=== PATIENT | female | born 2000 | race Two or more races ===

== ENCOUNTER 2022-05-03 17:28 | Emergency (ER) | payer MEDICAID, OTHER ==
[~2022-05-03] VITALS: Ht 149.9 cm; Wt 73.8 kg
[2022-05-03 18:21] VITALS: BP 130/87
[2022-05-03 19:05] LABS: Urine Bacteria FEW /hpf (None Seen); Urine Blood Negative /uL (Negative); Urine Mucus FEW (None Seen); Urine Specific Gravity 1.035 (1.001-1.035); Urine WBC 32 /hpf (0 - 5)
[2022-05-03 19:06] LABS: Basophils # (auto) 0.1 10 ^3/uL (0-0.2); Basophils % (auto) 0.3 % (0.0-2.0); Eosinophils # (auto) 0 10 ^3/uL (0-0.8); Eosinophils % (auto) 0.1 % (0.0-7.0); Hematocrit 39.1 % (36.0-46.0); Lymphocytes # (auto) 2.3 10 ^3/uL (0.4-5.4); Lymphocytes % (auto) 15.7 % (10.0-50.0); Mean Corpuscular Hemoglobin 28.8 pg (28.0-32.0); Mean Corpuscular Hgb Conc. 33.2 g/dL (32.0-36.0); Mean Corpuscular Volume 86.8 fL (80.0-100.0); Monocytes # (auto) 0.7 10 ^3/uL (0-1.3); Neutrophils # (auto) 11.6 10 ^3/uL (1.6-8.6); Neutrophils % (auto) 78.9 % (37.0-80.0); Nucleated Red Blood Cells % 0.1 %; Red Cell Distribution Width 13.4 % (11.8-14.3); White Blood Cell 14.7 10^3/uL (4.4-10.8)
[2022-05-03 19:16] LABS: Albumin 4.4 g/dL (3.4-5.0); Potassium 3.6 mmol/L (3.5-5.1)
[2022-05-03 19:21] LABS: Alcohol, Urine < 3.0 mg/dL (0-10); Amphetamine Screen, Urine NEGATIVE (NEGATIVE); Barbiturate Scree,Urine NEGATIVE (NEGATIVE); Benzodiazephine Screen, Urine NEGATIVE (NEGATIVE); Cannabinoid Screen, Urine POSITIVE (NEGATIVE); Cocaine Screen, Urine NEGATIVE (NEGATIVE); Phencyclidine Screen, Urine NEGATIVE (NEGATIVE)
[2022-05-03 19:27] LABS: BUN/Creatinine Ratio 13.6; Bilirubin, Total 0.6 mg/dL (0.2-1.0); Total Protein 8.6 g/dL (6.4-8.2)
[2022-05-03 19:28] LABS: Opiate Scree,Urine NEGATIVE (NEGATIVE)
== END 2022-05-03 21:03 | disposition left against medical advice (07) ==
LOC: ER 17:28
DX: R10.13 Epigastric pain (principal); Z53.21 Procedure and treatment not carried out due to patient leaving prior to being seen by health care provider
CPT/HCPCS: 36415; 80053; 80307; 81001; 81025; 83605; 83690; 85025

== ENCOUNTER 2023-11-26 15:56 | Inpatient (IN) | payer MEDICAID ==
[~2023-11-26] VITALS: Ht 152.4 cm; Wt 72.0 kg
[2023-11-26 16:36] LABS: Basophils # (auto) 0 10 ^3/uL (0-0.2); Basophils % (auto) 0.4 % (0.0-2.0); Eosinophils # (auto) 0 10 ^3/uL (0-0.8); Eosinophils % (auto) 0.1 % (0.0-7.0); Hematocrit 36.1 % (36.0-46.0); Hemoglobin 12.2 g/dL (12.2-16.2); Lymphocytes # (auto) 1.7 10 ^3/uL (0.4-5.4); Lymphocytes % (auto) 16.7 % (10.0-50.0); Mean Corpuscular Hemoglobin 30.3 pg (28.0-32.0); Mean Corpuscular Hgb Conc. 33.7 g/dL (32.0-36.0); Mean Corpuscular Volume 89.9 fL (80.0-100.0); Monocytes # (auto) 0.5 10 ^3/uL (0-1.3); Monocytes % (auto) 5.3 % (0.0-12.0); Neutrophils # (auto) 7.8 10 ^3/uL (1.6-8.6); Neutrophils % (auto) 77.5 % (37.0-80.0); Platelet Count (auto) 204 10^3/uL (140-450); Red Blood Cells 4.02 10^6/uL (4.0-5.20); Red Cell Distribution Width 12.8 % (11.8-14.3); White Blood Cell 10.1 10^3/uL (4.4-10.8)
[2023-11-26 16:58] LABS: Urine Bacteria None Seen /hpf (None Seen)
[2023-11-26 17:05] LABS: Alanine Aminotransferase 10 U/L (7-40); Albumin 4.4 g/dL (3.2-4.8); Alkaline Phosphatase 68 U/L (46-116); Anion Gap 10 (5-15); Aspartate Aminotransferase 13 U/L (13-40); BUN/Creatinine Ratio 8.9 (10.0-20.0); Blood Urea Nitrogen 8 mg/dL (9-23); Calcium 9.2 mg/dL (8.7-10.4); Carbon Dioxide 22 mmol/L (20-30); Chloride 105 mmol/L (98-107); Glucose 161 mg/dL (74-106); Lipase 32 U/L (12-53); Potassium 3.1 mmol/L (3.5-5.1); Sodium 137 mmol/L (136-145)
[2023-11-26 17:06] LABS: Bilirubin, Total 0.7 mg/dL (0.2-1.0); Total Protein 7.1 g/dL (5.7-8.2)
[2023-11-26 17:08] LABS: Urine Blood Negative /uL (Negative); Urine Clarity Turbid (Clear); Urine Color Light-Yellow (Yellow); Urine Mucus FEW (None Seen); Urine Protein, UAD TRACE (Negative); Urine Urobilinogen Normal (Negative); Urine WBC 10 /hpf (0 - 5)
[2023-11-26] MEDS: ONDANSETRON HCL 4 MG/2 ML VIAL IV ONE (18:37)
[2023-11-26 18:38] VITALS: PULSE 59; RESP 16; O2SAT 99
[2023-11-26] MEDS: CIPROFLOXACIN 400MG/200ML 200 ML IV ONE (18:43)
[2023-11-26] MEDS ORDERED: levoFLOXacin 500MG 100 ML IV ONE (19:30)
[2023-11-26] MEDS: POTASSIUM EFFERVESENT TAB 25 MEQ PO ONE (19:30)
[2023-11-26] MEDS ORDERED: NITROGLYCERIN 0.4 MG SL TAB SL PRN (19:30)
[2023-11-26] MEDS: SODIUM CHLORIDE 0.9% 1,000 ML IV SCH (19:30)
[2023-11-26 20:20] LABS: Magnesium 1.9 mg/dL (1.6-2.6)
[2023-11-26 20:21] LABS: Phosphorus 1.4 mg/dL (2.4-5.1)
[2023-11-26 20:51] LABS: Amphetamine Screen, Urine Neg (NEGATIVE); Benzodiazephine Screen, Urine Neg (NEGATIVE)
[2023-11-26 20:52] LABS: Barbiturate Scree,Urine Neg (NEGATIVE); Cannabinoid Screen, Urine Pos (NEGATIVE); Cocaine Screen, Urine Neg (NEGATIVE); Opiate Scree,Urine Neg (NEGATIVE); Phencyclidine Screen, Urine Neg (NEGATIVE)
[2023-11-26 22:58] VITALS: BP 122/66; PULSE 65; RESP 18; TEMP 98.7; O2SAT 98
[2023-11-27] VITALS (7 sets, daily range): BP systolic 107–132; BP diastolic 59–92; PULSE 60–90; RESP 14–20; TEMP 97.9–100.1; O2SAT 97–100
[2023-11-27] MEDS: HYDROcodone-ACET 5/325MG TAB PO ONE (05:35)
[2023-11-27 07:41] LABS: Basophils # (auto) 0 10 ^3/uL (0-0.2); Basophils % (auto) 0.4 % (0.0-2.0); Eosinophils # (auto) 0.1 10 ^3/uL (0-0.8); Eosinophils % (auto) 0.6 % (0.0-7.0); Hematocrit 32.3 % (36.0-46.0); Hemoglobin 11.3 g/dL (12.2-16.2); Lymphocytes # (auto) 1.5 10 ^3/uL (0.4-5.4); Mean Corpuscular Hemoglobin 31.2 pg (28.0-32.0); Mean Corpuscular Hgb Conc. 34.9 g/dL (32.0-36.0); Mean Corpuscular Volume 89.5 fL (80.0-100.0); Monocytes # (auto) 0.8 10 ^3/uL (0-1.3); Monocytes % (auto) 8.5 % (0.0-12.0); Neutrophils # (auto) 6.6 10 ^3/uL (1.6-8.6); Neutrophils % (auto) 73.5 % (37.0-80.0); Platelet Count (auto) 164 10^3/uL (140-450); Red Blood Cells 3.61 10^6/uL (4.0-5.20); Red Cell Distribution Width 12.8 % (11.8-14.3)
[2023-11-27 07:53] LABS: Alanine Aminotransferase 15 U/L (7-40); Albumin 3.5 g/dL (3.2-4.8); Alkaline Phosphatase 58 U/L (46-116); Anion Gap 4 (5-15); Aspartate Aminotransferase 9 U/L (13-40); Bilirubin, Total 0.7 mg/dL (0.2-1.0); Calcium 8.5 mg/dL (8.7-10.4); Carbon Dioxide 28 mmol/L (20-30); Chloride 108 mmol/L (98-107); Glucose 89 mg/dL (74-106); Sodium 140 mmol/L (136-145); Total Protein 5.9 g/dL (5.7-8.2)
[2023-11-27 07:54] LABS: BUN/Creatinine Ratio 6.7 (10.0-20.0); Blood Urea Nitrogen < 5 mg/dL (9-23)
[2023-11-27] MEDS: levoFLOXacin 500MG 100 ML IV SCH (09:35)
[2023-11-27] MEDS: ERGOCALCIFEROL 50,000 UNIT(1.25MG) CAP PO SCH (11:45)
[2023-11-27 13:24] LABS: COVID19 ANTIGEN SOFIA FIA POSITIVE (NEGATIVE)
[2023-11-27] MEDS: MORPHINE SULFATE INJ 2 MG/ml SYRG IV PRN (14:03)
[2023-11-27] MEDS: CYANOCOBALAMIN (B-12) 1000 MCG/1 ML VIAL IM ONE (14:04)
[2023-11-27] MEDS: POTASSIUM CHL 20MEQ/100ML 100 ML IV ONE (14:27)
[2023-11-27 16:10] LABS: Uric Acid 4.8 mg/dL (3.1-7.8)
[2023-11-27 16:13] LABS: Phosphorus 2.2 mg/dL (2.4-5.1)
[2023-11-27] MEDS: ONDANSETRON HCL 4 MG/2 ML VIAL IV PRN (22:07)
[2023-11-28] VITALS: BP 123/77; PULSE 93; RESP 17; TEMP 99.4; O2SAT 98
[2023-11-28 05:00] VITALS: BP 111/57; PULSE 80; RESP 20; TEMP 100.4; O2SAT 98
[2023-11-28] MEDS: ACETAMINOPHEN 500 MG TAB PO PRN (05:58)
[2023-11-28 07:29] LABS: Hemoglobin 11.9 g/dL (12.2-16.2); Mean Corpuscular Hemoglobin 30.6 pg (28.0-32.0); Platelet Count (auto) 153 10^3/uL (140-450); Red Blood Cells 3.89 10^6/uL (4.0-5.20); Red Cell Distribution Width 12.8 % (11.8-14.3); White Blood Cell 7.4 10^3/uL (4.4-10.8)
[2023-11-28 07:33] LABS: Anion Gap 7 (5-15); Carbon Dioxide 22 mmol/L (20-30); Chloride 109 mmol/L (98-107); Potassium 3.3 mmol/L (3.5-5.1); Sodium 138 mmol/L (136-145)
[2023-11-28 07:34] LABS: Calcium 8.6 mg/dL (8.7-10.4)
[2023-11-28 07:39] LABS: BUN/Creatinine Ratio 6.1 (10.0-20.0); Blood Urea Nitrogen 5 mg/dL (9-23); Glucose 127 mg/dL (74-106)
[2023-11-28 07:40] LABS: Band Neutrophils % (manual) 0; Basophils % (manual) 0 (0.0-2.0); Blast Cells 0; Eosinophils % (manual) 0 (0-7); Metamyelocytes % 0; Myelocytes % 0; Promyelocytes % 0; Reactive Lymphocytes 0
[2023-11-28 08:30] VITALS: BP 113/65; PULSE 64; RESP 16; TEMP 99.1; O2SAT 98
[2023-11-28 08:45] LABS: Lymphocytes % (manual) 12 (10.0-50.0); Monocytes % (manual) 7 (0-12); Platelet Estimate Adequate
[2023-11-28] MEDS: ZINC SULFATE 220mg CAP or TAB PO SCH (11:48)
[2023-11-28 12:23] VITALS: BP 110/69; PULSE 56; RESP 17; TEMP 97.8; O2SAT 99
[2023-11-28] MEDS: POTASSIUM PHOSPHATE 22 MEQ in SODIUM CHL 0.9% 100 ML IV ONE (14:20)
[2023-11-28 16:00] VITALS: BP 116/77; PULSE 72; RESP 16; TEMP 98.5; O2SAT 98
[2023-11-28 22:03] VITALS: BP 112/70; PULSE 70; RESP 20; TEMP 98.8; O2SAT 99
[2023-11-29] VITALS: BP_SYST 108; BP_DIAS 49; BP_DIAS 65; PULSE 75; RESP 22; TEMP 99; O2SAT 99
[2023-11-29 05:00] VITALS: BP 167/77; PULSE 75; RESP 21; TEMP 98; O2SAT 95
[2023-11-29 08:00] VITALS: BP 121/79; PULSE 64; RESP 18; TEMP 98.1; O2SAT 98
[2023-11-29 08:07] LABS: Basophils # (auto) 0 10 ^3/uL (0-0.2); Basophils % (auto) 0.9 % (0.0-2.0); Eosinophils # (auto) 0.1 10 ^3/uL (0-0.8); Eosinophils % (auto) 2.7 % (0.0-7.0); Hematocrit 36.8 % (36.0-46.0); Hemoglobin 12.4 g/dL (12.2-16.2); Lymphocytes # (auto) 1.6 10 ^3/uL (0.4-5.4); Lymphocytes % (auto) 29.6 % (10.0-50.0); Mean Corpuscular Hemoglobin 30.2 pg (28.0-32.0); Mean Corpuscular Hgb Conc. 33.7 g/dL (32.0-36.0); Mean Corpuscular Volume 89.4 fL (80.0-100.0); Monocytes # (auto) 0.9 10 ^3/uL (0-1.3); Monocytes % (auto) 16.9 % (0.0-12.0); Neutrophils # (auto) 2.7 10 ^3/uL (1.6-8.6); Neutrophils % (auto) 49.9 % (37.0-80.0); Platelet Count (auto) 156 10^3/uL (140-450); Red Blood Cells 4.12 10^6/uL (4.0-5.20); Red Cell Distribution Width 12.9 % (11.8-14.3); White Blood Cell 5.4 10^3/uL (4.4-10.8)
[2023-11-29 08:16] LABS: Chloride 107 mmol/L (98-107); Potassium 3.8 mmol/L (3.5-5.1); Sodium 138 mmol/L (136-145)
[2023-11-29 08:17] LABS: Anion Gap 5 (5-15); Calcium 8.9 mg/dL (8.7-10.4); Carbon Dioxide 26 mmol/L (20-30)
[2023-11-29 08:22] LABS: Glucose 94 mg/dL (74-106)
[2023-11-29 08:23] LABS: Blood Urea Nitrogen < 5 mg/dL (9-23)
[2023-11-29] MEDS: DOCUSATE SOD 100 MG CAP PO PRN (11:45)
[2023-11-29 12:34] VITALS: BP 107/78; PULSE 60; RESP 16; TEMP 98.2; O2SAT 98
[2023-11-29] MEDS ORDERED: LEVO500T91 PO (13:50)
[2023-11-29 15:43] VITALS: BP 107/78; PULSE 60; RESP 16; TEMP 98.2; O2SAT 98
[2023-11-29 16:00] VITALS: BP 118/87; PULSE 70; RESP 20; TEMP 98.1; O2SAT 99
== END 2023-11-29 16:40 | disposition home or self-care (01) | DRG 463 ==
LOC: ER 15:56 → OVERFLOW 19:39 → CENTRAL 19:39 → WEST WING 22:40 → CENTRAL 11-29 02:10
PROVIDERS: ADMIT Internal Medicine; ATTEND Internal Medicine
DX: N13.6 Pyonephrosis (principal); U07.1 COVID-19; E86.0 Dehydration; E87.6 Hypokalemia; R73.9 Hyperglycemia, unspecified; E55.9 Vitamin D deficiency, unspecified; E53.8 Deficiency of other specified B group vitamins; Z88.0 Allergy status to penicillin; Z79.899 Other long term (current) drug therapy
CPT/HCPCS: 36415; 74176; 76775; 80048; 80053; 80307; 81001; 81025; 82306; 82607; 82728; 83036; 83690; 83735; 83970; 84100; 84443; 84550; 85007; 85025; 85027; 87086; 87426; G0378; J1956; J2405; J3480

== ENCOUNTER 2025-01-21 14:52 | Emergency (ER) | payer MEDICAID ==
[~2025-01-21] VITALS: Ht 154.9 cm; Wt 70.0 kg
[~2025-01-21 14:52] MED LIST: LEVO500T91 PO
[2025-01-21 16:00] LABS: Urine Protein, UAD 1+ (Negative)
[2025-01-21] MEDS ORDERED: ACET-1304 PO (16:24)
[2025-01-21] MEDS ORDERED: BACDST PO (16:24)
[2025-01-21] MEDS: ACETAMINOPHEN 325 MG TAB PO ONE (16:27)
[2025-01-21] MEDS: cefTRIAXone SOD 1,000 MG VL IM ONE (16:37)
[2025-01-21] MEDS: LIDOCAINE 1% HCL (LOCAL ANESTH.) INJ 20ML MDV ONE (16:37)
[2025-01-21 16:47] VITALS: BP 118/85; PULSE 88; RESP 20; TEMP 98.5; O2SAT 98
--- NOTE | 2025-01-22 11:18 | ED.PDOC ---
General HPI Comments A 25 YEAR OLD FEMALE PRESENTS TO THE ED WITH COMPLAINT OF UTI SYMPTOMS. PATIENT STATES SHE HAS BEEN EXPERIENCING UTI SYMPTOMS FOR THE PAST 2 WEEKS. PATIENT REPORTS SHE HAS BEEN EXPERIENCING A FEVER, CHILLS, BODY ACHES, URINARY URGENCY, SMALL URINE OUTPUT, AND DIFFICULTY URINATING OFF AND ON FOR THE PAST 2 WEEKS. PATIENT NOTES SHE WENT TO [facility] RECENTLY WHERE SHE WAS GIVEN IV ANTIBIOTIC TREATMENT AND PRESCRIBED KEFLEX, BUT NOTES THERE HAS BEEN NO IMPROVEMENT IN HIS SYMPTOMS. PATIENT DENIES DYSURIA, HEMATURIA, VAGINAL DISCHARGE, FLANK PAIN, SHORTNESS OF BREATH, CHEST PAIN, ABDOMINAL PAIN, NAUSEA, VOMITING, HEADACHE, OR OTHER COMPLAINTS. NO OTHER SYMPTOMS OR MODIFYING FACTORS AT THIS TIME. PATIENT IS ALERT, ORIENTED X 4, AND HAS STEADY GAIT. Chief Complaint: Urinary Time Seen by MD: 14:59 Primary Care Provider: SUNIL Duran notes: Nurses Notes, Medications, Allergies Allergies: Coded Allergies: Amoxicillin (Verified Allergy, Unknown, 05/03/22) Home Meds Active Scripts Sulfamethoxazole W/Trimethopri (Bactrim Ds Tablet) 1 Tab Tb, 1 TAB PO BID for 7 Days, #14 TAB Prov:INOCENCIO BOO 01/21/25 Acetaminophen (Tylenol Extra Strength Fo) 500 Mg Tab, 1000 MG PO BID, #30 TAB Prov:INOCENCIO BOO 25 Levofloxacin Hemihydrate (LEVOFLOXACIN) 500 Mg Tab, 1 TAB PO DAILY for 7 Days, #7 TAB Prov:GWENDOLYN GARCÍA DO 11/29/23 Information Source: Patient Mode of Arrival: Wheelchair Severity: Moderate Inability to void: None Timing: Weeks Duration: Since onset Prehospital treatment: None Onset: Spontaneous Symptoms: Frequency, Urgency, Other (FEVER, CHILLS, BODY ACHES) History of: UTI Location: Suprapubic Modifying factors: None associated signs and symptoms: Dysuria, Frequency, Urgency Past Medical History PAST MEDICAL HISTORY: UTI'S Surgical History: Denies all surgeries MIDD[employer]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 [employer]ISH TEACHER History Family History Family History: Reviewed,noncontributory to illness Social History Smoker: Non-Smoker Alcohol: Denies ETOH Use Drugs: Denies Drug Use Lives In: Home Constitutional: reports: chills, fever; denies: diaphoresis, fatigue, malaise, sweats, weakness, others EENTM: denies: blurred vision, double vision, ear bleeding, ear discharge, ear drainage, ear pain, ear ringing, eye pain, eye redness, hearing loss, mouth pain, mouth swelling, nasal discharge, nose bleeding, nose congestion, nose pain, photophobia, tearing, throat pain, throat swelling, voice changes, others Respiratory: denies: cough, hemoptysis, orthopnea, SOB at rest, shortness of b reath, SOB with excertion, stridor, wheezing, others Cardiovascular: denies: chest pain, dizzy spells, diaphoresis, Dyspnea on exertion, edema, irregular heart beat, left arm pain, lightheadedness, palpitations, PND, syncope, others Gastrointestinal: denies: abdomen distended, abdominal pain, blood streaked bowels, constipated, diarrhea, dysphagia, difficulty swallowing, hematemesis, melena, nausea, poor appetite, poor fluid intake, rectal bleeding, rectal pain, vomiting, others Genitourinary: reports: dysuria, frequency, urgency; denies: abnormal vagina bleeding, burning, dyspareunia, flank pain, hematuria, incontinence, pain, pre gnant, vagina discharge, others Neurological: denies: dizziness, fainting, headache, left sided numbness, left sided weakness, numbness, paresthesia, pre-existing deficit, right sided numbness, right sided weakness, seizure, speech problems, tingling, tremors, weakness, others Musculoskeletal: reports: muscle pain; denies: back pain, gout, joint pain, joint swelling, muscle stiffness, neck pain, others Integumetry: denies: bruises, change in color, change in hair/nails, dryness, laceration, lesions, lumps, rash, wounds, others Hematologic/Lymphatic: denies: anemia, blood clots, easy bleeding, easy bruising, swollen glands, others Endocrine: denies: excessive hunger, excessive sweating, excessive thirst, excessive urination, flushing, intolerance to cold, intolerance to heat, unexplained weight gain, unexplained weight loss, others Psychiatric: denies: anxiety, bipolar disorder, depression, hopeless, panic disorder, schizophrenia, sleepless, suicidal, others All Other Systems: Reviewed and Negative Physical Exam General Appearance: No Apparent Distress, Normal HEENT: Normal ENT Inspection, PERRL/EOMI, Pharynx Normal, TMs Normal Neck: Full Range of Motion, Non-Tender, Normal, Normal Inspection Respiratory: Chest Non-Tender, Lungs Clear, No Accessory Muscle Use, No Respiratory Distress, Normal Breath Sounds Cardiovascular: No Edema, No JVD, No Murmur, No Gallop, Normal Peripheral Pulses, Regular Rate/Rhythm Breast Exam: Deferred Gastrointestinal: No Organomegaly, No Pulsatile Mass, Normal Bowel Sounds, Soft, Suprapubic (PRESSURE ) Genitalia: Deferred Pelvic: Normal External Exam, Tender Uterus Rectal: Deferred Extremities: No calf tenderness, Normal capillary refill, Normal inspection, Normal range of motion, Non-tender, No pedal edema Musculoskeletal : Apperance: Normal Neurologic: Alert, automotive quality engineer II-XII nml as Tested, No Motor Deficits, Normal Affect, Normal Mood, No Sensory Deficits Cerebellar Function: Normal Reflexes: Normal Skin: Dry, Normal Color, Warm Peripheral Pulses: 2+ carotid (R), 2+ carotid (L) Lymphatic: No Adenopathy Was a procedure done? Was a procedure done?: No Differential Diagnosis Kidney stone (Female): N/A Kidney stone (Male): N/A Penile/Scrotal: N/A Urinary Problem (Male): N/A Urinary Problem (Female): Pyelonephritis, Urolithiasis, UTI, Vaginitis X-Ray, Labs, Meds, VS Vital Signs Date Time Temp Pulse Resp B/P (MAP) Pulse Ox O2 Delivery O2 Flow Rate FiO2 01/21/25 14:56 98.5 88 20 118/85 98 98.5 Lab Test 01/21/25 15:36 Range/Units Urine Color Yellow Yellow Urine Clarity Turbid H Clear Urine pH 6.0 5.0-9.0 Urine Specific [place] 1.035 1.001-1.035 Urine Protein 1+ H Negative Urine Ketones 2+ H Negative Urine Blood Negative Negative /uL Urine Nitrite Negative Negative Urine Bilirubin Negative Negative Urine Urobilinogen Normal Negative mg/dL Urine Leukocyte Esterase 2+ Negative /uL Urine RBC 4 0 - 4 /hpf Urine Microscopic WBC 16 H 0-5 /HPF Urine Squamous Epithelial Cells Mod <5 /hpf Urine Bacteria Few H None Seen /hpf Urine Mucus Few None Seen Urine Glucose Normal Normal mg/dL Urine Test Negative Negative Current Medications Medications (Trade) Dose Ordered Sig/Madi Route Start Time Stop Time Status Last Admin Ceftriaxone Sodium (Rocephin) 1,000 mg ONCE ONCE IM 01/21/25 16:15 01/21/25 16:16 DC 01/21/25 16:37 Acetaminophen (Tylenol Tablet) 1,000 mg ONCE ONCE PO 01/21/25 16:15 01/21/25 16:16 DC 01/21/25 16:27 X-Ray, Labs, Meds, VS Comment EXTERNAL MEDICAL RECORDS REVIEWED: [NONE] INDEPENDENT HISTORIANS: [NONE] SOCIAL DETERMINANTS OF HEALTH: [NONE] LABS ORDERED: UA, URINE REVIEWED AND INTERPRETED RESULTS: LEUKOCYTES 2+ IMAGING ORDERED: NONE TREATMENTS ORDERED: ROCEPHIN 1 G IM AND TYLENOL 1GM PO PROCEDURES PERFORMED: NONE CRITICAL CARE TIME: NONE I HAVE DISCUSSED THE PATIENT WITH THE ATTENDING PHYSICIAN DR. BROWNING AND HE AGREES WITH THE PATIENT'S PLAN OF CARE AND DISPOSITION. BASED ON HISTORY OF PRESENT ILLNESS, AND PHYSICAL EXAM, PATIENT WILL BE DISCHARGED HOME. DISCUSSED PLAN FOR DISCHARGE HOME WITH RX [SEPTRA DS AND TYLENOL 650MG ]. MEDICATION WARNINGS GIVEN. SHARED DECISION MAKING: DISCUSSED WITH PATIENT THAT THEIR WORKUP WAS NORMAL. PATIENT INSTRUCTED TO FOLLOW UP WITH PRIMARY CARE PROVIDER IN 1-2 DAYS FOR RE- EVALUATION OF SYMPTOMS. PATIENT VERBALIZES UNDERSTANDING TO RETURN TO ED FOR NEW OR WORSENING SYMPTOMS OR IF FOLLOW UP WITH PCP CANNOT BE OBTAINED. PATIENT FEELS COMFORTABLE GOING HOME AT THIS TIME. ALL QUESTIONS ADDRESSED AT TIME OF DISCHARGE. Time of 1ST Reevaluation: 17:00 Reevaluation 1ST: Improved Patient Education/Counseling: Diagnosis, Treatment, Need For Follow Up Family Education/Counseling: Diagnosis, Treatment, Need For Follow Up Medical Screening: No EMC Exist At This Time SEPSIS Sepsis Screen Date sepsis recognized/suspect: Jan 21, 2025 Time Sepsis recognized/suspect: 1458 Recent Procedure: No On Antibiotic Therapy: No Respiratory Rate >20: No Heart Rate >90: No Temp<36 C (96.8 F) or >38.3 C: No SBP <90 or MAP <65 mmHG: No New Acute Mental Status Change: No Is the patient on CPAP, BIPAP,: No Vital Signs Date Time Temp Pulse Resp B/P (MAP) Pulse Ox O2 Delivery O2 Flow Rate FiO2 01/21/25 14:56 98.5 88 20 118/85 98 98.5 Medications Medications Dose Ordered Sig/Madi Route Start Time Stop Time Status Last Admin Dose Admin Acetaminophen 1,000 mg ONCE ONCE PO 01/21/25 16:15 01/21/25 16:16 DC 01/21/25 16:27 Ceftriaxone Sodium 1,000 mg ONCE ONCE IM 01/21/25 16:15 01/21/25 16:16 DC 01/21/25 16:37 Lidocaine HCl 20 ml STK-MED ONCE .ROUTE 01/21/25 16:35 01/21/25 16:30 DC 01/21/25 16:37 Departure 1 Departure Time of Disposition: 17:00 Impression: Primary Impression: Acute UTI (urinary tract infection) Disposition: HOME / SELF CARE / HOMELESS Condition: Stable Additional Instructions: FOLLOW-UP WITH PCP IN 1 TO 2 DAYS. TAKE MEDICATIONS PRESCRIBED. RETURN TO ED FOR ANY NEW OR WORSENING SYMPTOMS. e-Prescriptions Sulfamethoxazole W/Trimethopri (Bactrim Ds Tablet) 1 Tab Tb 1 TAB PO BID for 7 Days, #14 TAB Prov: INOCENCIO BOO 01/21/25 Acetaminophen (Tylenol Extra Strength Fo) 500 Mg Tab 1000 MG PO BID, #30 TAB Prov: INOCENCIO BOO 01/21/25 Discharged With: Self, Relative (Mother) Critical Care Note Critical Care Time?: No Stability Stability form required: No I personally scribed for INOCENCIO BOO ([email or web address]) on 01/21/25 at 15:59. Electronically submitted by Lamin Avila ([email or web address]). I personally scribed for INOCENCIO BOO ([email or web address]) on 01/21/25 at 16:16. Electronically submitted by Lamin PATTON). INOCENCIO BOO Jan 21, 2025 15:59
== END 2025-01-21 16:50 | disposition home or self-care (01) ==
LOC: ER 14:52
DX: N39.0 Urinary tract infection, site not specified (principal); Z87.440 Personal history of urinary (tract) infections; Z88.0 Allergy status to penicillin; Z79.899 Other long term (current) drug therapy
CPT/HCPCS: 81001; 81025; 96372; 99283; J0696; J2003

== ENCOUNTER 2025-01-22 09:43 | Emergency (ER) | payer MEDICAID ==
[~2025-01-22] VITALS: Ht 152.4 cm; Wt 69.6 kg
[~2025-01-22 09:43] MED LIST changes: +ACET-1304 PO; +BACDST PO
[2025-01-22 09:45] VITALS: BP 131/54; PULSE 91; RESP 16; TEMP 100.2; O2SAT 97
[2025-01-22] MEDS ORDERED: methylPREDNISolone SOD SUCC 125 MG/2 ML VL IM ONE (10:45)
--- NOTE | 2025-01-22 11:44 | ED.PDOC ---
History of Present Illness HPI Comments 25 y/o F presents with relative for c/c of abdominal pain, nausea, vomiting, and throat swelling x4 days. Patient reports on returning to the ED after being last evaluated, yesterday, for continuing UTI, due to being unable to take her prescriptions she was prescribed. She comments on being unable to swallow medications and vomiting almost immediately. Denies any bloody or bilious vomitus, diarrhea, or further acute symptoms. Chief Complaint: Urinary Time Seen by MD: 10:20 Primary Care Provider: SUNIL Duran Notes: Nurses Notes, Medications, Allergies Allergies: Coded Allergies: Amoxicillin (Verified Allergy, Unknown, 05/03/22) Home Meds Active Scripts Sulfamethoxazole W/Trimethopri (Bactrim Ds Tablet) 1 Tab Tb, 1 TAB PO BID for 7 Days, #14 TAB Prov:INOCENCIO BOO 01/21/25 Acetaminophen (Tylenol Extra Strength Fo) 500 Mg Tab, 1000 MG PO BID, #30 TAB Prov:NIOCENCIO BOO 01/21/25 Levofloxacin Hemihydrate (LEVOFLOXACIN) 500 Mg Tab, 1 TAB PO DAILY for 7 Days, #7 TAB Prov:GWENDOLYN GARCÍA DO 11/29/23 Information Source: Patient Mode of Arrival: Ambulatory Severity: Moderate Timing: Days Duration: Since onset Prehospital treatment: None Past Medical History PAST MEDICAL HISTORY: UTI'S Surgical History: Denies all surgeries SEED TESTER History: No Pertinent SEED TESTER History Family History Family History: Unknown Social History Smoker: Non-Smoker Alcohol: Denies ETOH Use Drugs: Denies Drug Use Lives In: Home All Other Systems: Reviewed and Negative (Comprehensive review of systems are negative unless stated in HPI) Physical Exam General Appearance: Moderate Distress HEENT: Tonsillar Exudate (Right) Neck: Full Range of Motion, Non-Tender, Normal, Normal Inspection Respiratory: Chest Non-Tender, Lungs Clear, No Accessory Muscle Use, No Respiratory Distress, Normal Breath Sounds Cardiovascular: No Edema, No JVD, No Murmur, No Gallop, Normal Peripheral Pulses, Regular Rate/Rhythm Breast Exam: Deferred Gastrointestinal: No Organomegaly, Non Tender, No Pulsatile Mass, Normal Bowel Sounds, Soft Genitalia: Deferred Pelvic: Deferred Rectal: Deferred Extremities: No calf tenderness, Normal capillary refill, Normal inspection, Normal range of motion, Non-tender, No pedal edema Musculoskeletal : Apperance: Normal Neurologic: Alert, manager market II-XII nml as Tested, No Motor Deficits, Normal Affect, Normal Mood, No Sensory Deficits Cerebellar Function: Normal Reflexes: Normal Skin: Dry, Normal Color, Warm Peripheral Pulses: 3+ Radial (R), 3+ Radial (L) Lymphatic: No Adenopathy Was a procedure done? Was a procedure done?: No Differential Dx Considerations may include: UTI, viral syndrome, among others X-Ray, Labs, Meds, VS Vital Signs Date Time Temp Pulse Resp B/P (MAP) Pulse Ox O2 Delivery O2 Flow Rate FiO2 01/22/25 09:45 100.2 91 16 131/54 97 100.2 Patient alert. Came in because of sore throat pain Was seen here yesterday for urinary tract infection. Vitals stable. She was at [facility] few days ago for the same symptom. Full workup has been done there. Spoke with the provider that took care of the patient yesterday. Family's rude. Patient is reviewed. She has not been taking her medication. Try to explained to the patient that she will need to follow up with her primary care social have good care. Continuity care is important. She did not want to listen. Stated that I was rude. Tried to be nice to explained to her that continuity Care of the most important form of treatment. Has placed an order to get steroid. Has placed an order to get Levaquin. Continue to monitor. Time of 1ST Reevaluation: 10:40 Reevaluation 1ST: Unchanged Patient Education/Counseling: Treatment, Need For Follow Up Family Education/Counseling: Treatment, Need For Follow Up SEPSIS Sepsis Screen Date sepsis recognized/suspect: Jan 22, 2025 Time Sepsis recognized/suspect: 0945 Recent Procedure: No On Antibiotic Therapy: Yes Respiratory Rate >20: Yes Heart Rate >90: Yes Temp<36 C (96.8 F) or >38.3 C: Yes SBP <90 or MAP <65 mmHG: No New Acute Mental Status Change: No Is the patient on CPAP, BIPAP,: No Physician Orders Urinalysis (01/22/25 10:21) Urine (01/22/25 10:21) Heplock Iv (01/22/25 10:21) Vital Signs Date Time Temp Pulse Resp B/P (MAP) Pulse Ox O2 Delivery O2 Flow Rate FiO2 01/22/25 09:45 100.2 91 16 131/54 97 100.2 Departure 1 Departure Time of Disposition: 12:10 Impression: Primary Impression: Tonsillitis Disposition: 30 STILL A PATIENT Condition: Good Critical Care Note Critical Care Time?: No Stability Stability form required: No Heart Score Heart Score: Heart Score Response (Comments) Value History N/A 0 EKG N/A 0 Age N/A 0 Risk Factors N/A 0 Troponin N/A 0 Total 0 I personally scribed for JOSE ZEPEDA MD ([email or web address]) on 01/22/25 at 11:00. Electronically submitted by Nick Dean ([email or web address]). JOSE ZEPEDA MD Jan 22, 2025 11:00
== END 2025-01-22 11:36 | disposition left against medical advice (07) ==
LOC: ER 09:43
DX: J03.90 Acute tonsillitis, unspecified (principal); Z87.440 Personal history of urinary (tract) infections; Z88.0 Allergy status to penicillin; Z79.899 Other long term (current) drug therapy